=== PATIENT | male | born 1995 | race Caucasian/White ===

== ENCOUNTER 2017-11-28 14:18 | Emergency (ER) | payer BC ==
[2017-11-28 14:28] VITALS: TEMP 37; Ht 195.6 cm
[2017-11-28] MEDS ORDERED: ESCI1TAB10 PO (15:10)
--- NOTE | 2017-11-28 15:36 | DIAGNOSTIC IMAGING REPORT ---
LEFT KNEE 3 VIEWS HISTORY: fall; L knee pain COMPARISON: None. FINDINGS: 1.5 cm linear ossific density within the suprapatellar space. There is a small knee effusion which could represent a lipohemarthrosis. Therefore, this is concerning for a fracture fragment, likely from the patella. No dislocation. IMPRESSION: A 1.5 cm linear ossific density within the suprapatellar space with a small knee effusion which could represent a lipohemarthrosis. Therefore, this is concerning for a fracture fragment likely from the patella. Electronically signed by: Raffy Caraballo M.D. 11/28/2017 3:35 PM Dictated Date/Time: 11/28/2017 3:32 PM
[2017-11-28 15:59] VITALS: BP 124/72; PULSE 73; O2SAT 97
[2017-11-28] MEDS ORDERED: HYDR-5688 PO (16:12)
--- NOTE | 2017-11-29 19:37 | EMERGENCY ROOM VISIT NOTE ---
ED Visit Note First contact with patient: 14:31 Chief Complaint: Left knee pain. History of Present Illness: Mr. Goldman is a 22-year-old white male who ambulates into the ED complaining of anterior left knee pain. Historically patient denies any previous significant injuries or surgeries to the knee. Patient reports approximately 1 hour before he arrived in the emergency department he slipped on ice/no and fell onto his left bent knee. He reports she immediately had pain in the anterior knee over the patella. Since that time his pain has been constant. Currently he describes his pain as a sharp sensation. He rates his discomfort 3/10. Pain is nonradiating. His pain worsens with palpation and flexion of the knee beyond 100. He has not identified any alleviating factors related to the pain. He has not taken any medication for pain prior to arrival at the hospital. He denies any associated symptoms including lightheadedness or dizziness before the fall, head injury or loss of consciousness at the time of the fall, back pain, hip pain, lower leg, ankle pain, leg weakness/numbness/tingling. Review of Systems: As noted above in history of present illness. Past Medical History: Asthma, status post tonsillectomy. Current Medications: Lexapro. Allergies to Medications: Patient denies. Social History: Patient is currently employed; he feels safe in his home environment; he denies tobacco use and admits to alcohol use. Physical Examination: Vital Signs: Date Time Temp Pulse Resp B/P (MAP) Pulse Ox O2 Delivery O2 Flow Rate FiO2 11/28/17 15:59 73 16 124/72 97 Room Air 11/28/17 14:28 37.0 86 20 150/70 97 Room Air GENERAL: 22-year-old male in mild distress due to pain, nontoxic-appearing, afebrile and hemodynamically stable. NEUROLOGICAL: Awake, alert and oriented to person, place and time. Answering questions appropriately and following commands. SKIN: Warm, dry and pink. No soft tissue trauma noted. LEFT LOWER EXTREMITY: No gross bony deformity. No shortening or malrotation. No tenderness in the hip, thigh, lower leg or ankle. Mild to moderate tenderness over the patella with the suprapatellar effusion. No tenderness over the joint lines. No laxity of the collateral cruciate ligaments. No tenderness over the posterior knee. No tenderness over the patellar tendon or attachments of the hamstring muscles. Mild decreased range of motion of the knee in flexion beyond 100. No decrease in extension and hyperextension. Questionable patellar apprehension test. Negative ballottement test. Full range of motion in hip and ankle against resistance. Throughout the extremity the skin was warm and pink and capillary refill is brisk. Distal pulses intact. Distal leg intact to light sensations. ED Course: Patient is assessed as noted above. Patient's medication list was reviewed. Patient was given ice for pain and swelling; he refused pain medication. Left Knee X-Rays: Were read by myself and the radiologist and shows a 1.5 cm linear ossific density within the suprapatellar space with a small knee effusion which could represent a lipohemarthrosis. Therefore, this is concerning for a fracture fragment likely from the patella. Patient was placed in a knee immobilizer and on nonweightbearing crutches. Patient was educated about today's findings and instructed on his treatment plan ; he verbalized understanding and agreement with this plan. Clinical Impression: Fall. Left patellar fracture. Disposition: Patient discharged home in stable condition accompanied by his girlfriend; prior to departure he was reassessed and subjectively reported he was feeling the same and rated his discomfort 3/10. Plan: Comfort measures were discussed with the patient including a sliding pain medication scale of ibuprofen, acetaminophen and [place]; his name was checked on state database and no red flags are noted and he was given appropriate narcotic precautions, additionally nonweightbearing crutches and knee immobilizer were discussed with the patient. Patient was referred to orthopedics for definitive care and treatment. Patient was encouraged to return the ED for worsening/uncontrolled pain, uncontrolled swelling, any leg weakness/numbness/tingling or any new/concerning symptoms.
== END 2017-11-28 16:30 | disposition home or self-care (01) ==
LOC: C.EDB 14:21 → C.EDD 16:30
DX: S82.002A Unspecified fracture of left patella, initial encounter for closed fracture (principal); W00.0XXA Fall on same level due to ice and snow, initial encounter; Y92.9 Unspecified place or not applicable; J45.909 Unspecified asthma, uncomplicated; Z79.899 Other long term (current) drug therapy